=== PATIENT | male | born 1950 | race Caucasian/White ===

== ENCOUNTER → 2024-09-19 | Outpatient (CLI) | payer MEDICARE ==
[2024-09-19 11:06] LABS: HCT 36.4 % (39.6-50.0); HGB 12.2 g/dL (13.0-17.0); MCH 33.5 pg (27.0-32.0); MCHC 33.5 g/dL (32.0-37.0); MCV 100.0 FL (80.0-97.0); NRBC Per 100 WBC 0 X 10*3/uL (0.00-0.01); Platelet Count 159 X 10*3/uL (140-440); RBC 3.64 X 10*6/uL (4.40-5.60); RDW 22.6 % (11.5-14.5); WBC 6.75 X 10*3/uL (4.50-10.00)
[2024-09-19 11:26] LABS: ALT 21 U/L (10-49); AST 28 U/L (14-35); Albumin 4.3 g/dL (3.8-4.9); Albumin/Globulin Ratio 1.95 Ratio (1.60-3.17); Alkaline Phosphatase 80 U/L (41-126); Anion Gap 9.80 mmol/L (4.00-12.00); BUN/Creat Ratio 14.09 Ratio (12.00-20.00); Bilirubin,Unconjugated 0.71 mg/dL (0.20-1.00); Blood Urea Nitrogen 15.5 mg/dL (9.0-27.0); Calcium 8.8 mg/dL (8.7-10.3); Carbon Dioxide 26.2 mmol/L (21.6-31.8); Chloride 105 mmol/L (96-109); Cholesterol 132.00 mg/dL (0.00-200.00); Globulin 2.2 g/dL (1.6-3.3); Glucose 112 mg/dL (70-110); HDL Cholesterol 27.20 mg/dL (40.00-60.00); LDL Cholesterol,Calculated 78.6 mg/dL (0.0-131.0); Potassium 4.7 mmol/L (3.5-5.5); Prostate Specific Antigen 2.30 ng/mL (0.000-6.500); Sodium 141 mmol/L (135-145); Total Protein 6.5 g/dL (6.2-8.2); Triglycerides 131.00 mg/dL (0.00-149.00); VLDL Calculation 26.20 mg/dL (5.00-40.00)
[2024-09-19 12:19] LABS: Basophils # (M) 0 X 10*3/uL (0.00-0.10); Eosinophils # (M) 0.27 X 10*3/uL (0.04-0.35); Lymphocytes # (M) 2.16 X 10*3/uL (0.90-5.00); Monocytes # (M) 0.34 X 10*3/uL (0.20-1.00); Neutrophils # (M) 3.98 X 10*3/uL (1.80-7.70); Neutrophils % (M) 59 %
== END | disposition home or self-care (01) ==
LOC: LABWHC1 07:27
PROVIDERS: ATTEND Nurse Practitioner Family
DX: Z12.5 Encounter for screening for malignant neoplasm of prostate (principal); I10 Essential (primary) hypertension
CPT/HCPCS: 36415; 80048; 80061; 80076; 84153; 85025